=== PATIENT | male | born 1980 | race Hispanic/Latino ===

== ENCOUNTER 2020-06-17 09:21 | Emergency (ER) | payer BC, OTHER ==
[2020-06-17 09:28] VITALS: BP 139/73
--- NOTE | 2020-06-17 09:30 | Emergency Department Report ---
ED Upper Extremity Inj HPI - General Chief Complaint: Extremity Injury, Upper Stated Complaint: HAND INJURY; POSSIBLE FRACTURE Time Seen by Provider: 06/17/20 09:29 Source: patient Mode of arrival: Ambulatory Limitations: No Limitations - History of Present Illness Initial Comments: 39 yo male was at work and slipped. He put his hand out to break fall and now has hand pain. no other injury -: Sudden, hour(s) Other Injuries: none Handedness: right Place: work Improves With: immobilization Worsens With: movement of extremity Context: fall Associated Symptoms: denies other symptoms - Related Data Previous Rx's Medication Instructions Recorded Last Taken Type Bismuth Subsalicylate 262 mg PO QID #1 bottle 04/15/16 Unknown Rx [Pepto-Bismol] Ibuprofen [Motrin] 600 mg PO Q8H PRN #20 tablet 04/15/16 Unknown Rx Ondansetron [Zofran Odt] 4 mg PO TID PRN #20 tab.rapdis 04/15/16 Unknown Rx Allergies Allergy/AdvReac Type Severity Reaction Status Date / Time No Known Allergies Allergy Unverified 04/15/16 12:09 ED Review of Systems ROS: Stated complaint: HAND INJURY; POSSIBLE FRACTURE Other details as noted in HPI Comment: All other systems reviewed and negative ED Past Medical Hx - Past Medical History Previous Medical History?: Yes Hx Headaches / Migraines: Yes Hx Psychiatric Treatment: Yes ("xanax for racing thoughts") - Social History Smoking Status: Never Smoker Substance Use Type: None - Medications Home Medications: Home Medications Medication Instructions Recorded Confirmed Last Taken Type Bismuth Subsalicylate 262 mg PO QID #1 bottle 04/15/16 Unknown Rx [Pepto-Bismol] Ibuprofen [Motrin] 600 mg PO Q8H PRN #20 tablet 04/15/16 Unknown Rx Ondansetron [Zofran Odt] 4 mg PO TID PRN #20 tab.rapdis 04/15/16 Unknown Rx ED Physical Exam - General Limitations: No Limitations General appearance: alert, in no apparent distress - Head Head exam: Present: atraumatic, normocephalic - Eye Eye exam: Present: normal appearance - ENT ENT exam: Present: mucous membranes moist - Neck Neck exam: Present: normal inspection - Respiratory Respiratory exam: Present: normal lung sounds bilaterally. Absent: respiratory distress - Cardiovascular Cardiovascular Exam: Present: regular rate, normal rhythm. Absent: systolic murmur, diastolic murmur, rubs, gallop - GI/Abdominal GI/Abdominal exam: Present: soft, normal bowel sounds - Rectal Rectal exam: Present: deferred - Extremities Exam Extremities exam: Present: normal inspection - Back Exam Back exam: Present: normal inspection - Neurological Exam Neurological exam: Present: alert, oriented X3 - Psychiatric Psychiatric exam: Present: normal affect, normal mood - Skin Skin exam: Present: warm, dry, intact, normal color. Absent: rash ED Course Vital Signs 06/17/20 09:28 Temperature 98 F Pulse Rate 73 Respiratory 16 Rate Blood Pressure 139/73 [Right] O2 Sat by Pulse 99 Oximetry ED Medical Decision Making - Radiology Data Radiology results: report reviewed, image reviewed no fx - Medical Decision Making xray neg Neuro vasc intact manjit for comfort dc home with RICE treatment and follow up with ortho verbalizes understanding of dc poc Vital Signs 06/17/20 09:28 Temperature 98 F Pulse Rate 73 Respiratory 16 Rate Blood Pressure 139/73 [Right] O2 Sat by Pulse 99 Oximetry - Differential Diagnosis ro fx Critical care attestation.: If time is entered above; I have spent that time in minutes in the direct care of this critically ill patient, excluding procedure time. ED Disposition Clinical Impression: Hand contusion, Fall Disposition: DC-01 TO HOME OR SELFCARE Is pt being admited?: No Does the pt Need Aspirin: No Condition: Stable Instructions: Contusion, [id number] Additional Instructions: ice rest elevate motrin or tylenol for pain wrap for 3 days for comfort follow up with pcp referral below Referrals: PERCY HINES MD [Staff Physician] - 3-5 Days TYRA HO MD [Primary Care Provider] - 3-5 Days OSMAN SILVA MD [Staff Physician] - 3-5 Days Forms: Work/School Release Form(ED) Time of Disposition: 10:38
--- NOTE | 2020-06-17 10:34 | XRay Report ---
RIGHT HAND 3 VIEWS INDICATION / CLINICAL INFORMATION: pain hand sp fosh. COMPARISON: None available. FINDINGS: No fracture or other significant abnormality. Signer Name: Candido Celestin MD Signed: 06/17/2020 10:29 AM Workstation Name: [id number]
== END 2020-06-17 10:44 | disposition home or self-care (01) ==
LOC: ED 09:21
DX: S60.221A Contusion of right hand, initial encounter (principal); G43.909 Migraine, unspecified, not intractable, without status migrainosus; Z79.899 Other long term (current) drug therapy; W01.0XXA Fall on same level from slipping, tripping and stumbling without subsequent striking against object, initial encounter; Y93.89 Activity, other specified; Y92.89 Other specified places as the place of occurrence of the external cause; Y99.0 Civilian activity done for income or pay